=== PATIENT | female | born 1995 | race Caucasian/White ===

== ENCOUNTER 2018-03-23 18:34 | Emergency (ER) | payer OTHER ==
[~2018-03-23] VITALS: Ht 154.9 cm; Wt 47.7 kg
[~2018-03-23 18:34] MED LIST: AMOXICILLIN500 MG PO; AUGMENTIN875TAB OR; DEPO-PROVER150 MG/ML IM; FLAGYL500 MG PO; GARDASIL IM; NUVARING VA
[2018-03-23] MEDS ORDERED: LORTAB 5/3255 MG PO (19:42)
[2018-03-23 19:50] VITALS: BP 120/80
== END 2018-03-23 20:10 | disposition home or self-care (01) | DRG 563 ==
LOC: ED 18:34
PROC: 2W3LX1Z Immobilization of Right Lower Extremity using Splint (ICD-10-PCS; principal; 2018-03-23)
DX: S92.321A Displaced fracture of second metatarsal bone, right foot, initial encounter for closed fracture (principal); V49.49XA Driver injured in collision with other motor vehicles in traffic accident, initial encounter; Y92.414 Local residential or business street as the place of occurrence of the external cause

== ENCOUNTER 2020-10-19 20:25 | Emergency (ER) | payer OTHER ==
[~2020-10-19] VITALS: Ht 154.9 cm; Wt 45.0 kg
[~2020-10-19 20:25] MED LIST changes: +LORTAB 5/3255 MG PO
[2020-10-19 21:13] LABS: HEMATOCRIT 37.3 % (37.0-47.0); IMMATURE GRANULOCYTES 0.2 % (0.0-5.0); MEAN CORPUSCULAR HGB 29.1 pG CALC (26.0-32.0); MEAN CORPUSCULAR HGB CONC 32.2 g/dL CAL (32.0-36.0); NEUT# 3.97 thou/uL (2.00-7.15); RED BLOOD COUNT 4.13 mill/uL (4.20-5.60); RED CELL DISTRI WIDTH 12.4 % (11.5-15.5)
[2020-10-19 21:14] LABS: MEAN CELL VOLUME 90.3 fL CALC (80.0-100.0)
[2020-10-19 21:27] LABS: ALBUMIN 4.4 g/dL (3.2-5.0); ALKALINE PHOSPHATASE 52 u/l (38-126); ANION GAP 9 (6-22 (CALC)); BILIRUBIN, TOTAL 0.2 mg/dL (0.0-1.4); BUN 15 mg/dL (7-17); BUN/CREATININE RATIO 20 (12-20 (CALC)); CARBON DIOXIDE 28 mmol/l (22-30); CHLORIDE 105 mmol/l (95-108); CREATININE 0.8 mg/dL (0.5-1.0); GFR > 60 ML/MIN (>=60 (CALC)); GFR FOR AFR.AMER. > 60 ML/MIN (>=60 (CALC)); POTASSIUM 3.6 mmol/l (3.5-5.1); SGOT/AST 24 u/l (14-36); SODIUM 139 mmol/l (137-146); TOTAL PROTEIN 7.3 g/dL (6.3-8.2)
[2020-10-19] MEDS ORDERED: VOLTAREN75 MG PO (22:38)
[2020-10-19 22:57] VITALS: BP 116/72
== END 2020-10-19 22:56 | disposition home or self-care (01) | DRG 605 ==
LOC: ED 20:25
PROVIDERS: Family Medicine
PROC: 0HQLXZZ Repair Left Lower Leg Skin, External Approach (ICD-10-PCS; principal; 2020-10-19)
DX: S81.812A Laceration without foreign body, left lower leg, initial encounter (principal); S39.012A Strain of muscle, fascia and tendon of lower back, initial encounter; V57.5XXA Driver of pick-up truck or van injured in collision with fixed or stationary object in traffic accident, initial encounter

== ENCOUNTER 2023-06-10 20:55 | Emergency (ER) | payer BC ==
[~2023-06-10] VITALS: Ht 154.9 cm; Wt 49.8 kg
[~2023-06-10 20:55] MED LIST changes: +VOLTAREN75 MG PO
[2023-06-10 23:01] LABS: URINE BILIRUBIN - DIPSTICK NEGATIVE (NEGATIVE); URINE COLOR YELLOW; URINE GLUCOSE - DIPSTICK NEGATIVE (NEGATIVE); URINE KETONE Negative (NEGATIVE)
[2023-06-10 23:02] LABS: URINE BLOOD DIPSTICK MODERATE (NEGATIVE); URINE LEUK ESTERASE NEGATIVE (NEGATIVE); URINE NITRITE - DIPSTICK NEGATIVE (Negative); URINE PROTEIN - DIPSTICK NEGATIVE (NEG-TRACE); URINE UROBILINOGEN - DIPSTICK 0.2 E.U./dL (0.2)
[2023-06-10 23:08] LABS: URINE WBC 0-2 WBC/hpf (0-5)
[2023-06-10 23:14] LABS: BASO% 1.1 % (0-3); EOS% 4.4 % (0-8); HEMATOCRIT 39.4 % (37.0-47.0); HEMOGLOBIN 12.7 g/dl (12.0-16.0); IMMATURE GRANULOCYTES 0.2 % (0.0-5.0); LYMPH% 40.7 % (15-41); MEAN CELL VOLUME 91.6 fL CALC (80.0-100.0); MEAN CORPUSCULAR HGB 29.5 pG CALC (26.0-32.0); MEAN CORPUSCULAR HGB CONC 32.2 g/dL CAL (32.0-36.0); MONO% 7.5 % (2-13); NEUT# 3.88 thou/uL (2.00-7.15); NEUT% 46.1 % (42-76); RED BLOOD COUNT 4.3 mill/uL (4.20-5.60); RED CELL DISTRI WIDTH 12.4 % (11.5-15.5)
[2023-06-10 23:26] LABS: ALBUMIN 4.1 g/dL (3.2-5.0); ALKALINE PHOSPHATASE 52 u/l (38-126); AMYLASE 67 u/l (30-110); ANION GAP 10 (6-22 (CALC)); BUN 13 mg/dL (7-17); BUN/CREATININE RATIO 15 (12-20 (CALC)); CARBON DIOXIDE 24 mmol/l (22-30); CHLORIDE 107 mmol/l (95-108); CREATININE 0.9 mg/dL (0.5-1.0); GFR FOR AFR.AMER. > 60 ML/MIN (>=60 (CALC)); GFR OTHER RACES > 60 ML/MIN (>=60 (CALC)); LIPASE 61 u/l (23-300); POTASSIUM 3.8 mmol/l (3.5-5.1); SGOT/AST 24 u/l (14-36); SODIUM 138 mmol/l (137-146)
[2023-06-10 23:28] LABS: BILIRUBIN, TOTAL 0.5 mg/dL (0.02-1.3)
[2023-06-11 02:38] VITALS: BP 115/75
[2023-06-11 02:49] VITALS: BP 115/75
== END 2023-06-11 03:10 | disposition home or self-care (01) | DRG 392 ==
LOC: ED 20:55
PROVIDERS: Emergency Medicine
DX: R10.31 Right lower quadrant pain (principal); Z20.822 Contact with and (suspected) exposure to COVID-19
CPT/HCPCS: Q9967